=== PATIENT | female | born 1980 | race Caucasian/White ===

== ENCOUNTER 2018-01-20 13:20 | Inpatient (IN) | payer OTHER ==
[~2018-01-20] VITALS: Ht 165.1 cm; Wt 69.4 kg
[2018-01-20] VITALS (8 sets, daily range): BP systolic 98–118; BP diastolic 57–83
--- NOTE | ~2018-01-20 | EKG ---
[place] [address] [facility] [place] [address] ELECTROCARDIOGRAM REPORT Name: TU HAAS Room #: 247-P ADM IN M.R.#: [id number] Admission: 01/20/18 Attend Phys: Nahomi Nunez Discharge: Date of : 78 Report #: [id number] THIS REPORT FOR: //name// [facility] ED Test Date: 2018-01-20 Test Time: 13:56:21 Pat Name: TU HAAS Department: Room: [facility] Gender: F Records Management Assistant: ISAAC : 1980 Requested By: Niki Guy Order Number: [id number] MD: Medhat Aceves Measurements Intervals [place] Rate: 100 P: 77 NH: 147 QRS: 72 QRSD: 94 T: 69 QT: 380 QTc: 491 Interpretive Statements Sinus tachycardia Nonspecific ST segment abnormality Borderline prolonged QT interval No previous ECG available for comparison Electronically Signed On 01-21-2018 8:24:19 CDT by Medhat Aceves [email or web address] <ELECTRONICALLY SIGNED> By: Medhat Aceves MD, [facility] 01/21/18 0824 [id number] Medhat Aceves MD, FACC /EPI
[2018-01-20 13:39] LABS: BE(vivo) -16.9 mmol/L (-2 to +3); HCO3 9.2 mmol/L (22.0-26.0); PCO2 VENOUS 23.9 mmHg (41.0-51.0)
[2018-01-20 13:48] LABS: ABSOLUTE NEUTROPHILS 11.6 thou/uL (1.4-8.2); BASOPHILS 0.4 % (0.0-2.0); EOSINOPHILS 0.1 % (0.0-3.0); HEMATOCRIT 38.7 % (37.0-47.0); HEMOGLOBIN 12.8 gm/dL (12.0-15.0); MCH 29.9 pg (26.0-34.0); MCV 90.6 fL (80.0-100.0); MONOCYTES 11.5 % (1.0-8.0); PLATELET COUNT 389 thou/uL (150-400); RBC 4.27 mil/uL (4.20-5.00); RDW 13.6 % (10.5-14.5); WBC 14.4 thou/uL (4.0-11.0)
[2018-01-20 13:56] LABS: CALCIUM 9.2 mg/dL (8.5-10.1); CREATININE 0.7 mg/dL (0.6-1.0); POTASSIUM 4.4 mmol/L (3.5-5.1)
[2018-01-20 14:05] LABS: URINE BILIRUBIN NEGATIVE (Negative); URINE BLOOD NEGATIVE (Negative); URINE CLARITY CLEAR; URINE COLOR YELLOW; URINE GLUCOSE-RANDOM* 2+ (Negative); URINE KETONES 3+ (Negative); URINE LEUKOCYTES-REFLEX NEGATIVE (Negative); URINE NITRITE-REFLEX NEGATIVE (Negative); URINE PROTEIN (DIPSTICK) NEGATIVE (Negative); URINE SPECIFIC GRAVITY 1.025 (1.005-1.035); URINE UROBILINOGEN 0.2 E.U./dl (0.2-1.0)
[2018-01-20 14:11] LABS: ALBUMIN 4.1 g/dL (3.4-5.0); TOTAL BILIRUBIN 0.6 mg/dL (<0.1-1.0); TOTAL PROTEIN 8.3 g/dL (6.4-8.2)
[2018-01-20 14:17] LABS: AMP/METHAMP POSITIVE (Negative); BARBITURATES Negative (Negative); BENZODIAZEPINES Negative (Negative); COCAINE Negative (Negative); METHADONE Negative (Negative); OPIATES Negative (Negative); PCP Negative (Negative)
[2018-01-20 15:26] LABS: CALCIUM 7.7 mg/dL (8.5-10.1); CREATININE 0.6 mg/dL (0.6-1.0); POTASSIUM 4.4 mmol/L (3.5-5.1)
[2018-01-20 15:30] LABS: ALBUMIN 3.7 g/dL (3.4-5.0); PHOSPHORUS 3.2 mg/dL (2.5-4.9)
[2018-01-20 19:52] LABS: CALCIUM 8.1 mg/dL (8.5-10.1); CREATININE 0.6 mg/dL (0.6-1.0); POTASSIUM 5.1 mmol/L (3.5-5.1)
[2018-01-20 19:55] LABS: ALBUMIN 3.5 g/dL (3.4-5.0); MAGNESIUM 1.9 mg/dL (1.8-2.4); PHOSPHORUS 2.4 mg/dL (2.5-4.9)
[2018-01-21] VITALS (23 sets, daily range): BP systolic 96–123; BP diastolic 51–69
[2018-01-21 00:09] LABS: CALCIUM 7.7 mg/dL (8.5-10.1); CREATININE 0.6 mg/dL (0.6-1.0); MAGNESIUM 1.8 mg/dL (1.8-2.4); PHOSPHORUS 1.5 mg/dL (2.5-4.9)
[2018-01-21 00:19] LABS: POTASSIUM 3.8 mmol/L (3.5-5.1)
[2018-01-21 04:08] LABS: CALCIUM 7.9 mg/dL (8.5-10.1); CREATININE 0.6 mg/dL (0.6-1.0); MAGNESIUM 1.9 mg/dL (1.8-2.4); PHOSPHORUS 2.4 mg/dL (2.5-4.9); POTASSIUM 3.8 mmol/L (3.5-5.1)
[2018-01-21 07:26] LABS: CALCIUM 8.2 mg/dL (8.5-10.1); CREATININE 0.6 mg/dL (0.6-1.0); POTASSIUM 3.6 mmol/L (3.5-5.1)
[2018-01-21 07:30] LABS: ALBUMIN 3.3 g/dL (3.4-5.0); PHOSPHORUS 2.3 mg/dL (2.5-4.9)
[2018-01-21 10:10] LABS: GLYCOHEMOGLOBIN (HGB A1C) 8.5 % (4.8-5.6)
[2018-01-21 13:16] LABS: ALBUMIN 2.9 g/dL (3.4-5.0); CALCIUM 7.7 mg/dL (8.5-10.1); CREATININE 0.6 mg/dL (0.6-1.0); MAGNESIUM 1.5 mg/dL (1.8-2.4); PHOSPHORUS 1.8 mg/dL (2.5-4.9); POTASSIUM 3.4 mmol/L (3.5-5.1)
[2018-01-21] MEDS ORDERED: TRAZODONE HCL100 MG PO (19:36)
[2018-01-21] MEDS ORDERED: LYSTEDA650 MG PO (19:36)
[2018-01-21] MEDS ORDERED: SEROQUEL XR 30300 M1 PO (19:38)
[2018-01-21] MEDS ORDERED: NOVOLOG100 UNIT/1 SUBQ (19:38)
[2018-01-21] MEDS ORDERED: FLEXERIL PO (19:38)
[2018-01-21] MEDS ORDERED: LEVEMIR SUBQ (19:39)
[2018-01-21 20:11] LABS: ALBUMIN 2.6 g/dL (3.4-5.0); CALCIUM 7.9 mg/dL (8.5-10.1); CREATININE 0.7 mg/dL (0.6-1.0); PHOSPHORUS 1.3 mg/dL (2.5-4.9); POTASSIUM 3.3 mmol/L (3.5-5.1)
[2018-01-22] VITALS (10 sets, daily range): BP systolic 99–112; BP diastolic 53–75
[2018-01-22 03:20] LABS: ABSOLUTE NEUTROPHILS 6.5 thou/uL (1.4-8.2); BASOPHILS 0.3 % (0.0-2.0); EOSINOPHILS 1.4 % (0.0-3.0); HEMATOCRIT 33.3 % (37.0-47.0); HEMOGLOBIN 11.4 gm/dL (12.0-15.0); LYMPHOCYTES 29.2 % (24.0-44.0); MCH 30.3 pg (26.0-34.0); MCHC 34.3 g/dL (28.0-37.0); MCV 88.2 fL (80.0-100.0); MONOCYTES 8.8 % (1.0-8.0); PLATELET COUNT 347 thou/uL (150-400); POLYS 60.3 % (36.0-66.0); RBC 3.77 mil/uL (4.20-5.00); RDW 13.6 % (10.5-14.5); WBC 10.7 thou/uL (4.0-11.0)
[2018-01-22 03:26] LABS: ANION GAP 8 mmol/L (7-16); BUN 15 mg/dL (7-18); CALCIUM 7.9 mg/dL (8.5-10.1); CHLORIDE 110 mmol/L (98-107); CO2 22 mmol/L (21-32); CREATININE 0.6 mg/dL (0.6-1.0); GLUCOSE 191 mg/dL (74-106); POTASSIUM 3.9 mmol/L (3.5-5.1); SODIUM 140 mmol/L (136-145)
[2018-01-22 03:32] LABS: ALBUMIN 2.4 g/dL (3.4-5.0); PHOSPHORUS 1.6 mg/dL (2.5-4.9); SGOT 9 U/L (15-37); SGPT 17 U/L (30-65); TOTAL BILIRUBIN < 0.1 mg/dL (<0.1-1.0); TOTAL PROTEIN 5.3 g/dL (6.4-8.2)
[2018-01-22 21:06] LABS: TRICYCLIC (TCA) CONFIRMATION Positive ng/mL (Cutoff=100)
[2018-01-23] MEDS ORDERED: LEXAPRO20 MG PO (22:26)
[2018-01-23] MEDS ORDERED: LOVASTATIN 20 M20 MG PO (22:26)
[2018-01-23] MEDS ORDERED: DEPAKOTE 250MG250 M1 PO (22:27)
[2018-01-23] MEDS ORDERED: CLONAZEPAM 0.50.5 M1 PO (22:27)
== END 2018-01-22 10:30 | disposition left against medical advice (07) | DRG 70 ==
LOC: ER 13:20 → ICU 14:49 → EROBS 14:49 → ICU 16:55
PROVIDERS: Hospitalist; Student in an Organized Health Care Education/Training Program
DX: G93.40 Encephalopathy, unspecified (principal); E10.10 Type 1 diabetes mellitus with ketoacidosis without coma; E43 Unspecified severe protein-calorie malnutrition; F17.210 Nicotine dependence, cigarettes, uncomplicated; F32.9 Major depressive disorder, single episode, unspecified; Z53.21 Procedure and treatment not carried out due to patient leaving prior to being seen by health care provider; F19.10 Other psychoactive substance abuse, uncomplicated; Z91.19 Patient's noncompliance with other medical treatment and regimen; Z68.25 Body mass index [BMI] 25.0-25.9, adult
CPT/HCPCS: 10078

== ENCOUNTER 2018-01-23 22:10 | Inpatient (IN) | payer OTHER ==
[~2018-01-23] VITALS: Ht 165.1 cm; Wt 66.2 kg
[~2018-01-23 22:10] MED LIST: FLEXERIL PO; LEVEMIR SUBQ; LYSTEDA650 MG PO; NOVOLOG100 UNIT/1 SUBQ; SEROQUEL XR 30300 M1 PO; TRAZODONE HCL100 MG PO
[2018-01-23 22:23] VITALS: BP 126/82
[2018-01-23] MEDS ORDERED: LOVASTATIN 20 M20 MG PO (22:26)
[2018-01-23] MEDS ORDERED: LEXAPRO20 MG PO (22:26)
[2018-01-23] MEDS ORDERED: CLONAZEPAM 0.50.5 M1 PO (22:27)
[2018-01-23] MEDS ORDERED: DEPAKOTE 250MG250 M1 PO (22:27)
[2018-01-23 22:51] LABS: URINE BILIRUBIN NEGATIVE (Negative); URINE BLOOD NEGATIVE (Negative); URINE CLARITY CLEAR; URINE COLOR YELLOW; URINE GLUCOSE-RANDOM* 3+ (Negative); URINE KETONES TRACE (Negative); URINE LEUKOCYTES-REFLEX NEGATIVE (Negative); URINE NITRITE-REFLEX NEGATIVE (Negative); URINE PROTEIN (DIPSTICK) NEGATIVE (Negative); URINE UROBILINOGEN 0.2 E.U./dl (0.2-1.0)
[2018-01-23 23:02] LABS: AMP/METHAMP Negative (Negative); BARBITURATES Negative (Negative); BENZODIAZEPINES Negative (Negative); COCAINE Negative (Negative); METHADONE Negative (Negative); OPIATES Negative (Negative); PCP Negative (Negative)
[2018-01-23 23:20] LABS: ABSOLUTE NEUTROPHILS 6.6 thou/uL (1.4-8.2); BASOPHILS 0.7 % (0.0-2.0); BE(vivo) 2.7 mmol/L (-2 to +3); EOSINOPHILS 1.4 % (0.0-3.0); HCO3 26.3 mmol/L (22.0-26.0); HEMATOCRIT 38.5 % (37.0-47.0); HEMOGLOBIN 12.9 gm/dL (12.0-15.0); LYMPHOCYTES 34.6 % (24.0-44.0); MCH 29.5 pg (26.0-34.0); MCHC 33.5 g/dL (28.0-37.0); MCV 88.2 fL (80.0-100.0); MONOCYTES 7.4 % (1.0-8.0); PCO2 VENOUS 37.2 mmHg (41.0-51.0); PLATELET COUNT 396 thou/uL (150-400); PO2 VENOUS 54.3 mmHg (35.0-45.0); POLYS 55.9 % (36.0-66.0); RBC 4.36 mil/uL (4.20-5.00); RDW 14.5 % (10.5-14.5); WBC 11.8 thou/uL (4.0-11.0)
[2018-01-23 23:28] LABS: ANION GAP 8 mmol/L (7-16); BUN 13 mg/dL (7-18); CALCIUM 8.4 mg/dL (8.5-10.1); CHLORIDE 105 mmol/L (98-107); CO2 27 mmol/L (21-32); CREATININE 0.7 mg/dL (0.6-1.0); GLUCOSE 233 mg/dL (74-106); POTASSIUM 3.8 mmol/L (3.5-5.1); SODIUM 140 mmol/L (136-145)
[2018-01-23 23:33] LABS: ALBUMIN 2.9 g/dL (3.4-5.0); DIRECT BILIRUBIN < 0.1 mg/dL (<0.1-0.3); LIPASE 139 U/L (73-393); SGOT 16 U/L (15-37); SGPT 21 U/L (30-65); TOTAL BILIRUBIN 0.2 mg/dL (<0.1-1.0); TOTAL PROTEIN 6.6 g/dL (6.4-8.2)
[2018-01-24] VITALS (7 sets, daily range): BP systolic 96–124; BP diastolic 40–74
[2018-01-25 04:35] VITALS: BP 97/47
[2018-01-25 06:15] LABS: BASOPHILS 0.5 % (0.0-2.0); EOSINOPHILS 1.5 % (0.0-3.0); HEMATOCRIT 34.7 % (37.0-47.0); HEMOGLOBIN 11.7 gm/dL (12.0-15.0); LYMPHOCYTES 37.1 % (24.0-44.0); MCH 29.6 pg (26.0-34.0); MCHC 33.7 g/dL (28.0-37.0); MCV 87.6 fL (80.0-100.0); MONOCYTES 8.6 % (1.0-8.0); POLYS 52.3 % (36.0-66.0); RBC 3.97 mil/uL (4.20-5.00); WBC 9.5 thou/uL (4.0-11.0)
[2018-01-25 06:17] LABS: PLATELET COUNT 318 thou/uL (150-400)
[2018-01-25 06:29] LABS: CALCIUM 8.5 mg/dL (8.5-10.1); CREATININE 0.4 mg/dL (0.6-1.0); MAGNESIUM 1.7 mg/dL (1.8-2.4); POTASSIUM 3.9 mmol/L (3.5-5.1)
[2018-01-25 07:25] VITALS: BP 143/63
[2018-01-25] MEDS ORDERED: KEFLEX500 M1 PO (08:33)
[2018-01-25 08:49] VITALS: BP 143/63
== END 2018-01-25 09:16 | disposition home or self-care (01) | DRG 300 ==
LOC: ER 22:10 → EROBS 01-24 00:38 → 3W 01-24 00:38
PROVIDERS: Emergency Medicine; Nurse Practitioner
DX: I80.8 Phlebitis and thrombophlebitis of other sites (principal); E87.2 Acidosis; F31.9 Bipolar disorder, unspecified; F19.10 Other psychoactive substance abuse, uncomplicated; F17.210 Nicotine dependence, cigarettes, uncomplicated; F41.9 Anxiety disorder, unspecified; F15.10 Other stimulant abuse, uncomplicated; F12.10 Cannabis abuse, uncomplicated; E11.65 Type 2 diabetes mellitus with hyperglycemia; Z79.899 Other long term (current) drug therapy
CPT/HCPCS: 10779

== ENCOUNTER 2021-03-25 23:45 | Inpatient (IN) | payer OTHER ==
[~2021-03-25] VITALS: Ht 165.1 cm; Wt 71.0 kg
[~2021-03-25 23:45] MED LIST changes: +CLONAZEPAM 0.50.5 M1 PO; +DEPAKOTE 250MG250 M1 PO; +KEFLEX500 M1 PO; +LEXAPRO20 MG PO; +LOVASTATIN 20 M20 MG PO
[2021-03-25 23:47] VITALS: BP 133/86
[2021-03-25 23:56] LABS: URINE BILIRUBIN 1+ (Negative); URINE BLOOD NEGATIVE (Negative); URINE CLARITY CLEAR; URINE COLOR YELLOW; URINE GLUCOSE-RANDOM* 3+ (Negative); URINE KETONES 3+ (Negative); URINE LEUKOCYTES-REFLEX NEGATIVE (Negative); URINE NITRITE-REFLEX NEGATIVE (Negative); URINE PROTEIN (DIPSTICK) NEGATIVE (Negative); URINE UROBILINOGEN 0.2 E.U./dl (0.2-1.0)
[2021-03-25 23:59] LABS: ABSOLUTE NEUTROPHILS 7.1 thou/uL (1.4-8.2); BASOPHILS 0.6 % (0.0-2.0); EOSINOPHILS 0.8 % (0.0-3.0); HEMATOCRIT 43.2 % (37.0-47.0); HEMOGLOBIN 14.3 gm/dL (12.0-15.0); LYMPHOCYTES 27.3 % (24.0-44.0); MCH 29.2 pg (26.0-34.0); MCHC 33.2 g/dL (28.0-37.0); MCV 87.9 fL (80.0-100.0); MONOCYTES 11.2 % (1.0-8.0); PLATELET COUNT 351 thou/uL (150-400); POLYS 60.1 % (36.0-66.0); RBC 4.91 mil/uL (4.20-5.00); RDW 13.7 % (10.5-14.5); WBC 11.7 thou/uL (4.0-11.0)
[2021-03-26 00:03] LABS: ANION GAP 16 mmol/L (7-16); BUN 13 mg/dL (7-18); CALCIUM 9.3 mg/dL (8.5-10.1); CHLORIDE 105 mmol/L (98-107); CO2 20 mmol/L (21-32); CREATININE 0.5 mg/dL (0.6-1.0); GLUCOSE 146 mg/dL (74-106); POTASSIUM 3.6 mmol/L (3.5-5.1); SODIUM 141 mmol/L (136-145)
[2021-03-26 00:05] LABS: AMP/METHAMP POSITIVE (Negative); BARBITURATES Negative (Negative); BENZODIAZEPINES Negative (Negative); COCAINE Negative (Negative); METHADONE Negative (Negative); OPIATES Negative (Negative); PCP Negative (Negative)
[2021-03-26 00:15] LABS: BE(vivo) -3.5 mmol/L (-2 to +3); PCO2 28.2 mmHg (35.0-45.0); PO2 74.1 mmHg (80.0-100.0); pH 7.447 (7.360-7.450); sO2 95.7 % (92.0-98.0)
[2021-03-26 00:15] LABS: ALBUMIN 3.8 g/dL (3.4-5.0); MAGNESIUM 1.9 mg/dL (1.8-2.4); SALICYLATE 7.7 mg/dL (2.8-20.0); SGOT 11 U/L (15-37); SGPT 22 U/L (14-59); TOTAL BILIRUBIN 0.4 mg/dL (0.2-1.0); TOTAL PROTEIN 7.7 g/dL (6.4-8.2)
[2021-03-26 07:26] VITALS: BP 144/91
[2021-03-26 08:10] VITALS: BP 120/67
--- NOTE | 2021-03-26 09:33 | EKG ---
[address] [place] [address] ELECTROCARDIOGRAM REPORT Name: TU HAAS MARIANELA Room #: 362-P ADM IN M.R.#: [id number] Admission: 03/26/21 Attend Phys: Crispin Santillan MD Discharge: Date of : 78 Report #: [id number] [facility] ED Test Date: 2021-03-26 Test Time: 01:21:09 Pat Name: TU HAAS Department: Room: 362 Gender: F Machine Filler Servicer: bradly : 1980 Requested By: Omar Ya Order Number: [id number] MD: Medhat Aceves Measurements Intervals [place] Rate: 89 P: 59 UT: 132 QRS: 49 QRSD: 84 T: 64 QT: 401 QTc: 488 Interpretive Statements Sinus rhythm Borderline prolonged QT interval Compared to ECG 01/20/2018 13:56:21 Sinus tachycardia no longer present Electronically Signed On 03-26-2021 9:33:00 CDT by Medhat Aceves [email or web address] <ELECTRONICALLY SIGNED> By: Medhat Aceves MD, [facility] 03/26/21 [phone] Medhat Aceves MD, FACC /EPI
[2021-03-26] MEDS ORDERED: ZYPREXA5 MG PO (09:35)
[2021-03-26] MEDS ORDERED: BASAGLAR K100 UNIT/1 SUBQ (09:38)
[2021-03-26 10:08] LABS: HEMATOCRIT 42.6 % (37.0-47.0); HEMOGLOBIN 14.1 gm/dL (12.0-15.0); MCH 29.6 pg (26.0-34.0); MCV 89.5 fL (80.0-100.0); RBC 4.75 mil/uL (4.20-5.00); RDW 13.3 % (10.5-14.5)
[2021-03-26 10:20] LABS: ANION GAP 20 mmol/L (7-16); BUN 14 mg/dL (7-18); CALCIUM 8.7 mg/dL (8.5-10.1); CHLORIDE 104 mmol/L (98-107); CO2 14 mmol/L (21-32); CREATININE 0.6 mg/dL (0.6-1.0); GLUCOSE 362 mg/dL (74-106); POTASSIUM 4.3 mmol/L (3.5-5.1); SODIUM 138 mmol/L (136-145)
[2021-03-26 10:22] LABS: CHOLESTEROL 171 mg/dL (<200); HDL CHOLESTEROL 52 mg/dL (>40); LDL CHOLESTEROL 102 mg/dL (<100); TC:HDL 3.3 Ratio (Not establshd); TRIGLYCERIDE 87 mg/dL (<150); VLDL 17 mg/dL (<40)
--- NOTE | 2021-03-26 10:50 | NUR ---
PT ADMITTED FROM ER WITH SI AND POSSIBLE OVERDOSE OF UNKNOWN MEDICATION. PT IS SR ON THE MONITOR AND RA. PT IS ALERT TO SELF ONLY. PT STATED IT IS 2019 AND COULD NOT TELL ME THE DATE. PT STATED SHE IS IN [place]. PT ALSO STATED SHE DOES NOT KNOW WHY SHE WAS NOT RESPONSIVE AND STATED THAT SHE DID NOT TAKE ANY MEDICATIONS. PT IS ANXIOUS AND DROWSY. WAS ABLE TO VERIFY HOME MEDICATIONS AND DOSES WITH PT. VERIFIED PHARMACY. PT DENIES SI AT THIS TIME. RECEIVED CALL FROM TEMO WITH [facility]. NO CHANGES AT THIS TIME AND WILL FOLLOW UP REGARDING PT CONDITION THIS EVENING. PT IS CURRENTLY SLEEPING IN BED. WILL CONTINUE TO MONITOR.
[2021-03-26 11:40] VITALS: BP 122/67
[2021-03-26 15:50] VITALS: BP 105/58
--- NOTE | 2021-03-26 16:45 | NUR ---
PT IS CURRENTLY SWAYING BACK AND FORTH IN THE BED AND VERY ANXIOUS. PT IS REQUESTING TO HAVE SOMETHING FOR ANXIETY. PAGED DR. CALLEJAS. WAITING FOR CALL BACK AT THIS TIME.
[2021-03-26 19:24] VITALS: BP 109/65
[2021-03-26 23:59] VITALS: BP 111/69
[2021-03-27] VITALS (7 sets, daily range): BP systolic 104–120; BP diastolic 43–71
--- NOTE | 2021-03-27 07:25 | NUR ---
Pt. able to answer orientation questions except date thoough this am she is more with it. No suicidal ideation. Sitter at bedside for safety. No seizure activities. No c/o pain. Voiding per bathroom. Poison control called to get an update on pt. last night. She slept well during the night.
--- NOTE | 2021-03-27 11:04 | NUR ---
ORDERS RECEIVED FOR PT EVAL AND TREAT. Pt WAS ON HER WAY TO [facility] FOR REHAB [facility] [employer]ER. HX OF SUBSTANCE ABUSE, PTSD, BIPOLAR, DMI. WAS POSITIVE FOR METH ON ARRIVAL. Pt ADMITTED FOR POSSIBLE OD AND SUICIDAL IDEATION. Pt HAS SITTER CURRENTLY. Pt DECLINING PT NEEDS AT THIS TIME. SITTER IN ROOM AND RN CONFIRMING THAT Pt HAS BEEN UP AD MAYE. ACUTE PT TO SIGN OFF.
--- NOTE | 2021-03-27 14:48 | NUR ---
INITIAL ASSESSMENT: Received consult. Pt was admitted from home due to SI-intentional overdose. Psych consulted. Per attending, pt is medically stable for discharge. 1:1 sitter present at bedside. Pt with hx of bipolar, anxiety, PTSD, type 1 DM. Pt's drug screen was positive for THC. BERNADINE met with pt at bedside. Introduced role of SW. Pt is alert/orientated and kept her eyes closed gor most of SW visit. Pt reports that she is currently living with her boyfriend, Stanislav, in [place], [place]. Prior to admission, pt was independent with ADLs. No use of DME. Pt is on disability. Pt reports that her boyfriend was taking her to [facility] for an evaluation. She took an unknown about of pills and was brought to [facility] ER due to AMS. BERNADINE discussed treatment options with pt: inpt v. outpatient. Pt states she is not interested in inpt treatment at this time. Pt states she goes to meeting and feels that she does not need inpt treatment. Pt states that her boyfriend is supportive and will help her as needed. SW offered to provide resources to pt for treatment options. Pt declines stating she does not need treatment at this time. Pt states that her boyfriend will be able to pick her up when she is discharged. Pt is hoping to discharge home today. SW explained that psych will need to evaluate her prior to discharge. Pt verbalized understanding. SW updated pt's nurse and attending physician. Contact info for ETOH/substance abuse treatment options placed in pt's discharge summary. Awaiting psych consult at this time. BERNADINE is following to assist as needed with discharge planning.
[2021-03-28 04:52] VITALS: BP 106/56
--- NOTE | 2021-03-28 05:15 | NUR ---
Pt. tearful at shift change , emotional support given. Sitter at bedside. No suicidal ideation. She informed me that she initially refused to go to in. psych earlier part of yesterday when she spoke to . Now she decided that she is aggreable to that but would like to go to [facility]. She is lot calmer after HS meds given. She slept well during the night. Sitter at bedside. No seizure activities.
[2021-03-28 07:14] VITALS: BP 96/31
[2021-03-28 11:20] VITALS: BP 118/55
--- NOTE | 2021-03-28 11:23 | NUR ---
BERNADINE reviewed chart and spoke with nursing and attending physician. Pt was evaluated by psych last evening. Recommendation for inpt psych placement. 1:1 sitter remains at bedside. Pt is medically stable for discharge to inpt psych facility. BERNADINE met with pt at bedside to discuss referral for inpt psych placement. Pt verbalized understanding and states she would like a referral to be sent to [facility], as she has been there in the past. Pt tearful and asked for BERNADINE to call her boyfriend, Stanislav, to provide an update. BERNADINE explained that once inpt psych placement has been found, an ambulance will provide transportation to the accepting facility. Pt verbalized understanding. SW left voice message for her Stanislav ([phone]) to provide update. BERNADINE faxed referral to [facility] and spoke with Olman in intake, who confirmed info has been received and the case is being reviewed. Contact info for BERNADINE provided to Olman. BERNADINE is following to assist as needed with discharge planning.
[2021-03-28 15:57] VITALS: BP 111/57
--- NOTE | 2021-03-28 16:43 | NUR ---
PT CONTINUALLY COMPLAINING OF FEELING ANXIOUS AM CLONAZEPAM AND PRN HYDROXYZINE GIVEN WITH MILD IMPROVEMENT IN SYMPTOMS. DR CALLEJAS CALLED AND ANXIETY MEDS WERE REQUESTED. PER DR CALLEJAS HE WILL DEFFER TO PSYCH. DR KAMINSKI CALLED AND ASKED FOR MEDS THIS AFTERNOON. WILL CONTINUE TO MONITOR.
[2021-03-28 20:44] VITALS: BP 107/51
--- NOTE | 2021-03-29 02:40 | NUR ---
Slept well most of the night with sitter at bedside. No suicidal ideation. No seizure activity. Denies being in pain. Tolerating room air well. Making some progress towards care plan goals.
[2021-03-29 08:23] VITALS: BP 95/58
--- NOTE | 2021-03-29 10:44 | NUR ---
BERNADINE reviewed chart. 1:1 sitter remains at the bedside due to SI. BERNADINE placed call to [facility] intake and spoke with Olman, who states pt is first on their list for placement when a bed is available. Anticipate they will have a bed for pt today. [facility] requests discharge ppwk and documentation stating pt is medically stable for discharge. BERNADINE updated attending physician. Awaiting documentation and discharge ppwk at this time. BERNADINE is following to assist as needed with discharge planning.
[2021-03-29 11:24] VITALS: BP 111/62
[2021-03-29] MEDS ORDERED: VISTARIL 25 MG25 M1 PO (12:17)
[2021-03-29] MEDS ORDERED: ACETAMINOPHEN325 M1 PO (12:17)
--- NOTE | 2021-03-29 16:39 | NUR ---
RN ASSUMED PT'S CARE AT 0700-1500PM, PT IS A&OX3 ( PERSON, PLACE AND TIME), PT'S VS ARE STABLE , BUT PT STILL HAS ANXIETY AND RESTLESS AT TIME, PT IS ON 1:1 SITTER WITH HER, PT CAN GETS UP TO BATH ROOM WITHOUT ASSIST, SW HAS NOTIFIED RN , PT HAS BED TO GO TO [facility] ( DC ORDER AT 03/28/21), RN HAS GIVING FACILITY A NURSE REPORT AT 1400PM, AMBULANCE STAFF GROUP PRESIDENT PT AT 1500PM.
== END 2021-03-29 15:36 | DRG 917 ==
LOC: ER 23:45 → 3W 03-26 01:46 → EROBS 03-26 01:46 → 3W 03-26 08:14
PROVIDERS: Emergency Medicine; Nurse Practitioner Family; ADMIT Internal Medicine; ATTEND Internal Medicine
DX: T48.1X2A Poisoning by skeletal muscle relaxants [neuromuscular blocking agents], intentional self-harm, initial encounter (principal); R65.11 Systemic inflammatory response syndrome (SIRS) of non-infectious origin with acute organ dysfunction; R45.851 Suicidal ideations; T42.4X2A Poisoning by benzodiazepines, intentional self-harm, initial encounter; R06.00 Dyspnea, unspecified; E10.9 Type 1 diabetes mellitus without complications; F31.9 Bipolar disorder, unspecified; F41.1 Generalized anxiety disorder; F17.210 Nicotine dependence, cigarettes, uncomplicated; J45.909 Unspecified asthma, uncomplicated; F12.10 Cannabis abuse, uncomplicated; F43.10 Post-traumatic stress disorder, unspecified; Z20.822 Contact with and (suspected) exposure to COVID-19; Z79.899 Other long term (current) drug therapy; Z90.710 Acquired absence of both cervix and uterus; Z88.8 Allergy status to other drugs, medicaments and biological substances; Y92.89 Other specified places as the place of occurrence of the external cause; F41.9 Anxiety disorder, unspecified
CPT/HCPCS: 10879